=== PATIENT | male | born 1970 | race African-American/Black ===

== ENCOUNTER 2018-08-11 23:42 | Inpatient (IN) | payer BC ==
[2018-08-12 00:06] LABS: #Basophils 0.1 thou/uL (0.0-0.2); #Eosinphils 0.1 thou/uL (0.0-0.7); #Lymphocytes 3.8 thou/uL (1.20-3.40); #Monocytes 0.9 thou/uL (0.11-0.59); #Neutrophils 5.8 thou/uL (1.40-6.50); %Basophils 0.9 % (0.0-1.0); %Eosinophils 0.7 % (0.0-10.0); %Lymphocytes 35.6 % (21.0-51.0); %Monocytes 8.2 % (0.0-10.0); %Neutrophils 54.6 % (42.0-75.0); Hemoglobin 15.1 g/dL (14.0-18.0); Mean Corpuscular HGB CONC 33.7 g/dL (32.0-36.0); Mean Corpuscular Hemoglobin 29.3 pg (27.0-31.0); Mean Corpuscular Volume 86.8 fL (78.0-98.0); Mean Platelet Volume 6.6 fL (7.4-10.4); Platelet Count 329 thou/uL (130-400); Red Blood Cell (RBC) Count 5.15 mill/uL (4.70-6.10); White Blood Cell (WBC) Count 10.7 thou/uL (4.8-10.8)
[2018-08-12 00:32] LABS: ALT (SGPT) 23 U/L (8-55); AST (SGOT) 28 U/L (5-34); Albumin 3.9 g/dL (3.5-5.0); Alkaline Phosphatase 113 U/L (40-150); Anion Gap 15 mmol/L (10-20); BUN (Urea Nitrogen) 11 mg/dL (8.9-20.6); Bilirubin, Total 0.4 mg/dL (0.2-1.2); Calc. Creatinine Clearance 0 mL/min (70-130); Calcium 9.4 mg/dL (7.8-10.44); Carbon Dioxide 19 mmol/L (22-29); Chloride 102 mmol/L (98-107); Estimated GFR-MDRD Greater than 90; Globulin 3.4 g/dL (2.4-3.5); Glucose 168 mg/dL (70-105); Lipase 19 U/L (8-78); Potassium 4.6 mmol/L (3.5-5.1); Protein, Total 7.3 g/dL (6.0-8.3); Sodium 131 mmol/L (136-145)
[2018-08-12] MEDS ORDERED: Aspirin Chewable 81 MG TAB ONE (00:37)
[2018-08-12] MEDS ORDERED: Nitroglycerin 2% Ointment 1 INCH/1 GM Packet ONE (00:37)
[2018-08-12 00:46] LABS: CKMB 0.9 ng/mL (0-6.6)
[2018-08-12 00:55] LABS: Bilirubin Negative (Negative); Blood, Urine Negative (Negative); Clarity CLOUDY (Clear); Glucose, Urine (Dipstick) Negative (Negative); Leukocyte Negative (Negative); Nitrite Negative (Negative); Protein, Urine (Dipstick) Negative (Neg-Trace); Specific Gravity, Urine 1.004 (1.002-1.036); Urobilinogen 0.2 mg/dL (0.2-1.0)
[2018-08-12] MEDS ORDERED: Enoxaparin Sodium 100 MG/ML SYRINGE ONE (01:02)
[2018-08-12] MEDS ORDERED: Nitroglycerin 0.4 MG TAB (25 Tab Bottle) PO PRN (01:26)
[2018-08-12] MEDS ORDERED: Ondansetron ODT 4 MG TAB PO PRN (01:29)
[2018-08-12] MEDS ORDERED: Calcium Carbonate 500 MG ChewTAB PO PRN (01:29)
[2018-08-12] MEDS ORDERED: Dextrose 50% Abboject 50 ML SYRINGE SLOW IVP PRN (01:29)
[2018-08-12] MEDS ORDERED: Insulin Regular 300 UNITS/3 ML VIAL SC PRN ×2 (01:29)
[2018-08-12] MEDS ORDERED: Dextrose 5% in Water 1,000 ML IV PRN (01:29)
[2018-08-12] MEDS ORDERED: Ondansetron PF 4 MG/2 ML Vial IVP PRN (01:29)
[2018-08-12] MEDS ORDERED: Acetaminophen 325 MG TAB PO PRN (01:29)
--- NOTE | 2018-08-12 02:00 | HP ---
PRIMARY CARE: GRACE Johnson. CHIEF COMPLAINT: Chest discomfort. HISTORY OF PRESENT ILLNESS: The patient is a 48-year-old male with hypertension, diabetes mellitus type 2, and family history of heart disease, presented to the emergency room with chest discomfort. Over the last 3 weeks or so, the patient has intermittent chest discomfort associated with lightheadedness and dizziness. He normally has 2-3 episodes of chest discomfort on a daily basis. He denies any aggravating or relieving factor. Over the last 2-3 days, the chest pain is more frequent and lasting longer. Earlier today while he was at home, he had sudden onset of chest tightness with near syncope. He almost passed out per spouse at the bedside. He also had shortness of breath without any cough, fever, or chills. The chest pain was precordial 7-8/10 without any aggravating or relieving factor. He also had some palpitations. He denies recent immobilization or travel. He never had a sleep study. He is unable to recall his recent hemoglobin A1c. His last A1c in 2017 was 8.7. He received Lovenox, aspirin, and 1 inch nitroglycerin patch was placed. His pain is currently 2-3/10. PAST MEDICAL HISTORY: 1. Hypertension. 2. Diabetes mellitus type 2. 3. Hyperlipidemia. 4. Morbid obesity. PAST SURGICAL HISTORY: 1. Arthroscopic right knee surgery,. 2. Prostate biopsy. CURRENT HOME MEDICATIONS: The patient is unable to recall any of his home medications. Per family physician's office record, the patient takes lisinopril 5 mg daily and metformin 1000 mg twice a day. ALLERGIES: NO KNOWN DRUG ALLERGIES. SOCIAL HISTORY: The patient currently lives at home. Denies current use of smoking, alcohol, or drug use. He is a former smoker. He is . FAMILY HISTORY: Positive for premature coronary artery disease. Sister had a cardiac transplant. Mother with brain tumor. Diabetes runs in his family. REVIEW OF SYSTEMS: The patient denies any nausea, vomiting, diaphoresis, or focal deficits. All other review of systems were reviewed and were found negative. PHYSICAL EXAMINATION: VITAL SIGNS: Temperature 99.5, respirations 20, pulse rate of 95, blood pressure of 175/103 with O2 saturation of 100% on room air. GENERAL: A 48-year-old male, in no apparent distress. Chest discomfort improved. HEENT: Head is atraumatic, normocephalic. Sclerae anicteric. Moist mucous membranes. No oral lesion. NECK: Supple. No JVD appreciated. No carotid bruit. LUNGS: Clear to auscultation bilaterally. No wheezing, rales, or rhonchi. HEART: S1 and S2 present. Regular rate and rhythm. No rubs or gallops appreciated. ABDOMEN: Soft, nontender. Bowel sounds present. EXTREMITIES: No edema or calf tenderness. NEUROLOGY: Grossly nonfocal. Moves all 4 extremities. PSYCHIATRY: Alert, awake, oriented x3. SKIN: Warm and dry. LYMPH NODE: No palpable lymph nodes in the neck. PERIPHERAL VASCULAR: Radial pulses palpable bilaterally. MUSCULOSKELETAL: No joint swelling or tenderness. LABORATORY FINDINGS: EKG by my review showed T-wave inversions in the anterolateral leads. Chest x-ray by my review was negative for infiltrate. WBC 10.7 with hemoglobin 15.1, hematocrit 44.6, platelets 329. D-dimer was 0.52. Initial troponin was 0.051 with normal CK-MB. BUN was 11, creatinine 0.94. Urinalysis was negative for wbc or bacteria. IMPRESSION: 1. Unstable angina. 2. Hypertension. 3. Diabetes mellitus type 2. 4. Hyperlipidemia. 5. Morbid obesity. 6. Suspected sleep apnea. PLAN: The patient will be monitored in the telemetry unit. Cardiology will be consulted. He is currently undergoing CT angiogram of the chest to rule out PE due to elevated D-dimer. We will monitor serial troponins. He received one dose of 1 mg/kg of Lovenox. We will keep him n.p.o. We will check fasting lipid profile and hemoglobin A1c in a.m. Gentle IV hydration due to IV contrast. Plan of care was discussed with the patient in detail, he stated understanding. Job ID: [id number]
[2018-08-12 02:47] VITALS: BMI 39.2
[2018-08-12] MEDS: Sodium Chloride 0.9% 1,000 ML IV SCH ×2 (03:00→18:17)
[2018-08-12 03:44] LABS: Hemoglobin A1c 8.7 % (4.0-6.0)
[2018-08-12 03:54] LABS: Troponin I 0.122 ng/mL (< 0.028)
[2018-08-12] MEDS: Nitroglycerin 2% Ointment 1 INCH/1 GM Packet TOP SCH ×4 (06:32→23:34)
[2018-08-12 07:41] LABS: Cardiac Risk 4.3 (Less than 4.5)
--- NOTE | 2018-08-12 07:45 | RAD ---
EXAM: Single view of the chest HISTORY: chest pain COMPARISON: None FINDINGS: Single view of the chest shows a normal sized cardiomediastinal silhouette. There is no florence dence of consolidation, mass, or pleural effusion. The bones are unremarkable. IMPRESSION: No evidence of acute cardiopulmonary disease
[2018-08-12 08:02] LABS: CKMB 2.1 ng/mL (0-6.6)
--- NOTE | 2018-08-12 08:13 | CT ---
PRELIMINARY REPORT/[facility]/EMERGENCY AFTER HOURS PROCEDURE: EXAM: CT Angiography Chest With Contrast EXAM DATE/TIME: 08/12/2018 1:35 AM CLINICAL HISTORY: 48 years old, male; Signs and symptoms; Angina; Patient HX: 48 y/o m, with h/o dmii and HTN, presents to ed C/O x 3 weeks of intermittent cp. Per PT, initial onset of pain was associated with palpitatio ns. He was prompted to come to ed tonight when he became dizzy and felt as though he may have syncopa l episode with onset of the cp and palpitations. Palpitations described as a racing heart beat. Cp do es not appear to be prompted or exacerbated by anything, noting that the first episode began while he was sitting down. He is a current tobacco user. No dyspnea, diaphoresis, n/v, recent fever, chills, diarrhea, abd pain, uri. TECHNIQUE: Imaging protocol: Axial computed tomographic angiography images of the chest with intravenous contras t using CT angiography protocol. Coronal reformations created and reviewed. 3D rendering: MIP reconst ructed images were created and reviewed. COMPARISON: No relevant prior studies available. FINDINGS: Pulmonary arteries: No pulmonary emboli. Aorta: No aortic aneurysm. No aortic dissection. Lungs: No consolidations or edema. Pleural space: No pneumothorax or pleural effusion. Heart: The heart is within normal size limits. No abdnormal pericardial effusion. Adrenals: Mild thickening of the left adrenal gland without focal nodule. Lymph nodes: No lymphadenopathy. Bones/joints: Degenerative cystic changes of the bilateral shoulders. Soft tissues: No acute finding. IMPRESSION: No evidence of a pulmonary embolism. Thank you for allowing us to participate in the care of your patient. Dictated and Authenticated by: Kinza Franco MD 08/12/2018 2:37 AM Central Time ([place]) FINAL REPORT EMERGENT AFTER HOURS CT ANGIO CHEST WITH CONTRAST WITH 3D RECONSTRUCTION: HISTORY: Chest pain. Syncope. Palpitations. FINDINGS: The lungs are clear of any infiltrative process. There are no pulmonary nodules or pleural effusions identified. There is no significant mediastinal or hilar adenopathy. The thoracic aorta is normal in caliber. The pulmonary arteries are well opacified. There is no CT evidence for pulmonary embolus. The visualized liver parenchyma is normal. The left adrenal gland is nodular in appearance. In [place] terry 08/29/2010 CT abdomen and pelvis, it has a similar appearance. CT Hounsfield unit numbers wo uld suggest this represents an adenoma. IMPRESSION: 1. Probable left adrenal adenoma. 2. No CT evidence of pulmonary embolus. This report is in agreement with the temporary report issued by [facility]. POS: [facility]
[2018-08-12] MEDS: Lisinopril 5 MG TAB PO SCH (08:37)
[2018-08-12] MEDS: Senokot S 8.6-50 MG TAB PO SCH ×2 (08:38→20:44)
[2018-08-12] MEDS: Famotidine 20 MG TAB PO SCH ×2 (08:38→20:45)
[2018-08-12] MEDS: Carvedilol 3.125 MG TAB PO SCH ×2 (08:38→18:16)
[2018-08-12] MEDS ORDERED: Aspirin 325 mg Enteric Coated Tablet PO SCH (09:00)
[2018-08-12] MEDS ORDERED: ISOVUE-370 76%-LOCM 1 ML ONE (09:35)
[2018-08-12] MEDS ORDERED: Communication Order-Pharmacy FS SCH (10:45)
[2018-08-12] MEDS ORDERED: Diazepam 5 MG TAB PO SCH (10:45)
--- NOTE | 2018-08-12 11:06 | CON ---
DATE OF CONSULTATION: 08/12/2018 REASON FOR CONSULTATION: Non ST-elevation myocardial infarction, diabetes, hypertension, and smoking. HISTORY OF PRESENT ILLNESS: Mr. Kovacs is a very pleasant 48-year-old gentleman, who states that for the last 3 days, he has had severe substernal chest pain. The last night, it was intense and was much more prolonged. The patient came to the emergency room, was found to have some increase in troponin levels, was given Lovenox and aspirin, admitted for further evaluation. The patient states he has had high blood pressure for at least 10 years. He said he smokes "one pack lasts be about two days." He said he has been diagnosed with diabetes about a year ago, he tells me. PAST MEDICAL HISTORY: 1. Diabetes as outlined above. 2. Hypertension at least 10 years. SOCIAL HISTORY: Positive for smoking as outlined above. FAMILY HISTORY: His sister has had cardiac transplantation. REVIEW OF SYSTEMS: CONSTITUTIONAL: No significant weight gain or loss. VISION: No changes. HEARING: No changes. PULMONARY: No cough or wheezing. GASTROINTESTINAL: No nausea, vomiting, or diarrhea. SKIN: No rashes. NEUROLOGIC: No unilateral weakness or numbness. PSYCHIATRIC: No unusual depression or anxiety. PHYSICAL EXAMINATION: GENERAL: This is a 48-year-old gentleman, 5 feet 8 inches tall, 258 pounds, BMI is 39.2, compatible with morbid obesity. HEENT: Eyes, sclerae nonicteric. Mouth, mucous membranes are moist. VITAL SIGNS: Pulse 74, blood pressure 107/58. NECK: Veins are normal. Carotid, normal upstrokes. LUNGS: Clear anteriorly and laterally. CARDIAC: Normal S1, normal S2. I do not hear murmur, rub, or gallop. ABDOMEN: Obese, nontender. EXTREMITIES: No clubbing or cyanosis. No edema. SKIN: Warm and dry. PSYCHIATRIC: Mood and affect normal. NEUROLOGIC: Grossly normal. VASCULAR: Good dorsalis pedis and posterior tibial pulses. PERTINENT LABORATORY DATA: The peak troponin was 0.172. LDL cholesterol is 98. Sodium 131, glucose 168. EKG normal sinus rhythm. T-wave inversion in lead I and aVL. Nonspecific changes in V2. Also intermittently, he has had some nonspecific T-wave changes in V4. ASSESSMENT: 1. Non ST-elevation infarction. 2. Diabetes. 3. Hypertension. 4. Morbid obesity. 5. Tobacco dependence. PLAN: 1. He has received aspirin. 2. Received Lovenox at 1 o'clock this morning. 3. Will need statin therapy. 4. Recommend he proceed cardiac catheterization. Discussed risk of stroke, heart attack, iodine allergy, loss of blood supply to leg or kidney, stent thrombosis, stent restenosis. He understands and wishes to proceed. Job ID: [id number]
[2018-08-12] MEDS ORDERED: Fentanyl 100 MCG/2 ML VIAL ONE (11:40)
[2018-08-12] MEDS ORDERED: Midazolam HCl 2 mg/2 ml Vial ONE (11:40)
--- NOTE | 2018-08-12 12:06 | PDOC.PN ---
- Subjective Encounter Start Date: 08/12/18 Encounter Start Time: 08:00 -: old records requested/rev Patient seen and examined. No new complaints. No overnight events - Objective Resuscitation Status - Order Detail: 08/12/18 01:29 Resuscitation Status Routine Resuscitation Status: FULL: Full Resuscitation MAR Reviewed: Yes Vital Signs & Weight: Vital Signs (12 hours) Temp Pulse Resp BP Pulse Ox 08/12/18 08:37 74 08/12/18 08:00 98.2 F 74 16 107/58 L 96 08/12/18 04:00 97.9 F 83 18 109/53 L 96 08/12/18 03:29 97 08/12/18 02:51 98 08/12/18 02:00 98.4 F 80 18 151/72 H 97 Weight Weight 258 lb Result Diagrams: 08/11/18 23:53 08/11/18 23:53 Additional Labs: Accuchecks 08/12/18 08/12/18 08/11/18 11:01 06:22 23:52 POC Glucose 118 H 181 H 166 H EKG Reviewed by me: Yes Phys Exam - Physical Examination Constitutional: NAD HEENT: PERRLA, moist MMs, sclera anicteric Neck: no JVD, supple Respiratory: no wheezing, no rales, no rhonchi Cardiovascular: RRR, no significant murmur, no rub Gastrointestinal: soft, non-tender, no distention, positive bowel sounds Musculoskeletal: no edema, pulses present Neurological: non-focal, normal sensation, moves all 4 limbs Lymphatic: no nodes Psychiatric: normal affect, A&O x 3 Skin: no rash, normal turgor Dx/Plan (1) Unstable angina Status: Acute (2) Diabetes type 2, controlled Code(s): E11.9 - TYPE 2 DIABETES MELLITUS WITHOUT COMPLICATIONS Status: Chronic (3) Dyslipidemia Code(s): E78.5 - HYPERLIPIDEMIA, UNSPECIFIED Status: Chronic (4) Hypertension Code(s): I10 - ESSENTIAL (PRIMARY) HYPERTENSION Status: Chronic (5) Obesity (BMI 30-39.9) Code(s): E66.9 - OBESITY, UNSPECIFIED Status: Chronic - Plan cont current plan of care, plan discussed w/ family * medication reviewed as below * symptomatic treatment * cardiology consulted * continue medical therapy. Review of Systems - Review of Systems ENT: negative: Ear Pain, Ear Discharge, Nose Pain, Nose Discharge, Nose Congestion, Mouth Pain, Mouth Swelling, Throat Pain, Throat Swelling, Other Respiratory: negative: Cough, Dry, Shortness of Breath, Hemoptysis, SOB with Excertion, Pleuritic Pain, Sputum, Wheezing Cardiovascular: negative: chest pain, palpitations, orthopnea, paroxysmal nocturnal dyspnea, edema, light headedness, other Gastrointestinal: negative: Nausea, Vomiting, Abdominal Pain, Diarrhea, Constipation, Melena, Hematochezia, Other Genitourinary: negative: Dysuria, Frequency, Incontinence, Hematuria, Retention , Other Musculoskeletal: negative: Neck Pain, Shoulder Pain, Arm Pain, Back Pain, Hand Pain, Leg Pain, Foot Pain, Other - Medications/Allergies Allergies/Adverse Reactions: Allergies Allergy/AdvReac Type Severity Reaction Status Date / Time No Known Drug Allergies Allergy Verified 08/12/18 06:25 Medications: Current Medications Acetaminophen (Tylenol) 650 mg PO Q4H PRN PRN Reason: Headache/Fever/Mild Pain (1-3) Aspirin (Ecotrin) 325 mg PO DAILY [facility] Last Admin: 08/12/18 08:38 Dose: 325 mg Calcium Carbonate (Tums) 1,000 mg PO Q4H PRN PRN Reason: Heartburn or Indigestion Carvedilol (Coreg) 3.125 mg PO BID-[facility] Last Admin: 08/12/18 08:38 Dose: 3.125 mg Dextrose/Water (Dextrose 50%) 25 gm SLOW IVP PRN PRN PRN Reason: Hypoglycemia Diazepam (Valium) 5 mg PO WILLCALL [facility] Stop: 08/12/18 20:00 Famotidine (Pepcid) 20 mg PO BID [facility] Last Admin: 08/12/18 08:38 Dose: 20 mg Glucagon (Glucagon) 1 mg IM PRN PRN PRN Reason: Hypoglycemia Dextrose/Water (D5w) 1,000 mls @ 0 mls/hr IV .Q0M PRN PRN Reason: Hypoglycemia Sodium Chloride (Normal Saline 0.9%) 1,000 mls @ 70 mls/hr IV .[id number] [facility] Last Admin: 08/12/18 03:00 Dose: 1,000 mls Insulin Human Regular (Humulin R) 0 units SC .MILD SLIDING SCALE PRN PRN Reason: Mild Correctional Scale Insulin Human Regular (Humulin R) 0 units SC .BEDTIME SLIDING SC PRN PRN Reason: Bedtime Correctional Scale Lisinopril (Zestril) 5 mg PO DAILY [facility] Last Admin: 08/12/18 08:37 Dose: 5 mg Miscellaneous Information (Communication Order-Pharmacy) 0 each FS ONE [facility] Stop: 08/12/18 20:00 Nitroglycerin (Nitro-Bid 2% Ointment) 1 inch TOP Q6HR [facility] Last Admin: 08/12/18 06:32 Dose: 1 inch Nitroglycerin (Nitrostat) 0.4 mg PO Q5MIN PRN PRN Reason: Chest Pain Ondansetron HCl (Zofran Odt) 4 mg PO Q6H PRN PRN Reason: Nausea/Vomiting Ondansetron HCl (Zofran) 4 mg IVP Q6H PRN PRN Reason: Nausea/Vomiting Senna/Docusate Sodium (Senokot S) 1 tab PO BID [facility] Last Admin: 08/12/18 08:38 Dose: Not Given Sodium Chloride (Flush - Normal Saline) 10 ml IVF PRN PRN PRN Reason: Saline Flush
[2018-08-12] MEDS ORDERED: Heparin 10,000 UNITS/1 ML VIAL ONE ×2 (12:47→12:59)
[2018-08-12] MEDS ORDERED: Nitroglycerin 100MG/250ML BOT 250 ML ONE (12:51)
[2018-08-12] MEDS ORDERED: TICAGRELOR 90 MG TABLET ONE (13:54)
[2018-08-12] MEDS ORDERED: Iopamidol 370 76% 50 ML VIAL FS ONE (14:20)
[2018-08-12] MEDS ORDERED: Iopamidol 370 76% 100 ML VIAL ONE (14:20)
[2018-08-12] MEDS ORDERED: Acetaminophen/Codeine 30-300mg Tablet PO PRN (14:27)
[2018-08-12] MEDS ORDERED: Mag-Al 1200 mg/1200 mg/30 ML UDCUP PO PRN (14:27)
[2018-08-12] MEDS ORDERED: traMADol HCl 50 MG TAB PO PRN (14:27)
[2018-08-12] MEDS ORDERED: Morphine 2 MG/ML SYRINGE SLOW IVP PRN (14:27)
[2018-08-12] MEDS ORDERED: TICAGRELOR 90 MG TABLET PO SCH (14:30)
[2018-08-12] MEDS: TICAGRELOR 90 MG TABLET PO SCH (20:45)
[2018-08-12] MEDS ORDERED: Atorvastatin Calcium 40 MG TAB PO SCH (21:00)
[2018-08-13 05:22] LABS: #Basophils 0.1 thou/uL (0.0-0.2); #Eosinphils 0.2 thou/uL (0.0-0.7); #Lymphocytes 3.3 thou/uL (1.20-3.40); #Neutrophils 5.4 thou/uL (1.40-6.50); %Basophils 0.8 % (0.0-1.0); %Eosinophils 1.9 % (0.0-10.0); %Lymphocytes 32.8 % (21.0-51.0); %Monocytes 9.8 % (0.0-10.0); %Neutrophils 54.6 % (42.0-75.0); Hemoglobin 13.5 g/dL (14.0-18.0); Mean Corpuscular HGB CONC 33.6 g/dL (32.0-36.0); Mean Corpuscular Hemoglobin 29.5 pg (27.0-31.0); Mean Corpuscular Volume 87.7 fL (78.0-98.0); Mean Platelet Volume 6.8 fL (7.4-10.4); Platelet Count 304 thou/uL (130-400); Red Blood Cell (RBC) Count 4.57 mill/uL (4.70-6.10)
[2018-08-13] MEDS: Nitroglycerin 2% Ointment 1 INCH/1 GM Packet TOP SCH (05:27)
[2018-08-13] MEDS: Sodium Chloride 0.9% 1,000 ML IV SCH (05:27)
[2018-08-13 05:40] LABS: ALT (SGPT) 15 U/L (8-55); AST (SGOT) 12 U/L (5-34); Albumin 3.2 g/dL (3.5-5.0); Alkaline Phosphatase 99 U/L (40-150); Anion Gap 11 mmol/L (10-20); BUN (Urea Nitrogen) 11 mg/dL (8.9-20.6); Bilirubin, Total 0.3 mg/dL (0.2-1.2); Calc. Creatinine Clearance 146 mL/min (70-130); Calcium 8.5 mg/dL (7.8-10.44); Carbon Dioxide 23 mmol/L (22-29); Chloride 104 mmol/L (98-107); Estimated GFR-MDRD Greater than 90; Globulin 2.6 g/dL (2.4-3.5); Glucose 193 mg/dL (70-105); Magnesium 1.8 mg/dL (1.6-2.6); Protein, Total 5.8 g/dL (6.0-8.3); Sodium 134 mmol/L (136-145)
[2018-08-13] MEDS ORDERED: Aspirin Chewable 81 MG TAB PO SCH (09:00)
[2018-08-13] MEDS: Lisinopril 5 MG TAB PO SCH (09:48)
[2018-08-13] MEDS: Famotidine 20 MG TAB PO SCH (09:50)
[2018-08-13] MEDS: TICAGRELOR 90 MG TABLET PO SCH (09:51)
[2018-08-13] MEDS: Carvedilol 3.125 MG TAB PO SCH (09:51)
[2018-08-13 09:52] VITALS: BP 122/65
[2018-08-13] MEDS: Senokot S 8.6-50 MG TAB PO SCH (09:52)
--- NOTE | 2018-08-13 10:11 | PDOC.PN ---
- Subjective Encounter Start Date: 08/13/18 Encounter Start Time: 07:20 -: old records requested/rev Patient seen and examined. No new complaints. No overnight events - Objective Resuscitation Status - Order Detail: 08/12/18 01:29 Resuscitation Status Routine Resuscitation Status: FULL: Full Resuscitation MAR Reviewed: Yes Vital Signs & Weight: Vital Signs (12 hours) Temp Pulse Resp BP BP Pulse Ox 08/13/18 09:48 84 122/65 08/13/18 04:00 98.2 F 92 18 105/54 L 96 Weight Weight 260 lb 4.8 oz I&O: 08/12/18 08/13/18 08/14/18 06:59 06:59 06:59 Intake Total 300 Output Total 275 Balance 25 Result Diagrams: 08/13/18 04:41 08/13/18 04:41 Additional Labs: Accuchecks 08/13/18 08/13/18 08/12/18 06:08 00:10 11:01 POC Glucose 141 H 230 H 118 H EKG Reviewed by me: Yes Phys Exam - Physical Examination Constitutional: NAD HEENT: PERRLA, moist MMs, sclera anicteric Neck: no JVD, supple Respiratory: no wheezing, no rales, no rhonchi Cardiovascular: RRR, no significant murmur, no rub Gastrointestinal: soft, non-tender, no distention, positive bowel sounds Musculoskeletal: no edema, pulses present Neurological: non-focal, normal sensation, moves all 4 limbs Psychiatric: normal affect, A&O x 3 Skin: no rash, normal turgor Dx/Plan (1) Unstable angina Status: Acute (2) Diabetes type 2, controlled Code(s): E11.9 - TYPE 2 DIABETES MELLITUS WITHOUT COMPLICATIONS Status: Chronic (3) Dyslipidemia Code(s): E78.5 - HYPERLIPIDEMIA, UNSPECIFIED Status: Chronic (4) Hypertension Code(s): I10 - ESSENTIAL (PRIMARY) HYPERTENSION Status: Chronic (5) Obesity (BMI 30-39.9) Code(s): E66.9 - OBESITY, UNSPECIFIED Status: Chronic - Plan cont current plan of care * medication reviewed as below * symptomatic treatment * see discharge summery. Review of Systems - Review of Systems ENT: negative: Ear Pain, Ear Discharge, Nose Pain, Nose Discharge, Nose Congestion, Mouth Pain, Mouth Swelling, Throat Pain, Throat Swelling, Other Respiratory: negative: Cough, Dry, Shortness of Breath, Hemoptysis, SOB with Excertion, Pleuritic Pain, Sputum, Wheezing Cardiovascular: negative: chest pain, palpitations, orthopnea, paroxysmal nocturnal dyspnea, edema, light headedness, other Gastrointestinal: negative: Nausea, Vomiting, Abdominal Pain, Diarrhea, Constipation, Melena, Hematochezia, Other Genitourinary: negative: Dysuria, Frequency, Incontinence, Hematuria, Retention , Other Musculoskeletal: negative: Neck Pain, Shoulder Pain, Arm Pain, Back Pain, Hand Pain, Leg Pain, Foot Pain, Other - Medications/Allergies Allergies/Adverse Reactions: Allergies Allergy/AdvReac Type Severity Reaction Status Date / Time No Known Drug Allergies Allergy Verified 08/12/18 06:25 Medications: Current Medications Acetaminophen (Tylenol) 650 mg PO Q4H PRN PRN Reason: Headache/Fever/Mild Pain (1-3) Al Hydroxide/Mg Hydroxide (Maalox) 30 ml PO Q3H PRN PRN Reason: Indigestion Aspirin (Aspirin Chewable) 81 mg PO DAILY [facility] Last Admin: 08/13/18 09:51 Dose: 81 mg Atorvastatin Calcium (Lipitor) 40 mg PO HS [facility] Last Admin: 08/12/18 20:45 Dose: 40 mg Calcium Carbonate (Tums) 1,000 mg PO Q4H PRN PRN Reason: Heartburn or Indigestion Carvedilol (Coreg) 3.125 mg PO BID-[facility] Last Admin: 08/13/18 09:51 Dose: 3.125 mg Dextrose/Water (Dextrose 50%) 25 gm SLOW IVP PRN PRN PRN Reason: Hypoglycemia Famotidine (Pepcid) 20 mg PO BID [facility] Last Admin: 08/13/18 09:50 Dose: 20 mg Glucagon (Glucagon) 1 mg IM PRN PRN PRN Reason: Hypoglycemia Dextrose/Water (D5w) 1,000 mls @ 0 mls/hr IV .Q0M PRN PRN Reason: Hypoglycemia Insulin Human Regular (Humulin R) 0 units SC .MILD SLIDING SCALE PRN PRN Reason: Mild Correctional Scale Insulin Human Regular (Humulin R) 0 units SC .BEDTIME SLIDING SC PRN PRN Reason: Bedtime Correctional Scale Lisinopril (Zestril) 5 mg PO DAILY [facility] Last Admin: 08/13/18 09:48 Dose: 5 mg Nitroglycerin (Nitrostat) 0.4 mg PO Q5MIN PRN PRN Reason: Chest Pain Ondansetron HCl (Zofran Odt) 4 mg PO Q6H PRN PRN Reason: Nausea/Vomiting Ondansetron HCl (Zofran) 4 mg IVP Q6H PRN PRN Reason: Nausea/Vomiting Senna/Docusate Sodium (Senokot S) 1 tab PO BID [facility] Last Admin: 08/13/18 09:52 Dose: Not Given Sodium Chloride (Flush - Normal Saline) 10 ml IVF PRN PRN PRN Reason: Saline Flush Ticagrelor (Brilinta) 90 mg PO BID [facility] Last Admin: 08/13/18 09:51 Dose: 90 mg Tramadol HCl (Ultram) 50 mg PO Q6H PRN PRN Reason: Moderate Pain (4-6)
--- NOTE | 2018-08-13 11:17 | DIS ---
DATE OF ADMISSION: 08/12/2018 DATE OF DISCHARGE: 08/13/2018 PRIMARY CARE PHYSICIAN: GRACE Johnson. DISCHARGE DISPOSITION: Home. PRIMARY DISCHARGE DIAGNOSIS: Unstable angina, status post stent in LAD. SECONDARY DISCHARGE DIAGNOSES: Obesity with BMI 39, hypertension, dyslipidemia, diabetes type 2. PRIMARY PROCEDURE/OPERATION: Cardiac catheterization was performed by Dr. Zamarripa and stent was placed. RADIOLOGICAL INVESTIGATION: Chest x-ray normal. CT angio negative for PE. Echocardiography showed normal EF. SIGNIFICANT LABORATORY DATA: WBC 10.0, hemoglobin 13.5, platelets 304. Sodium 134, creatinine 1.01. LFT normal. LDL 98. Troponin 0.172. Urinalysis normal. DISCHARGE MEDICATIONS: 1. Metformin 500 mg p.o. b.i.d. 2. Aspirin 81 mg daily. 3. Lipitor 40 mg p.o. at bedtime. 4. Coreg 3.125 mg p.o. b.i.d. 5. Lisinopril 5 mg p.o. daily. 6. Brilinta 90 mg p.o. b.i.d. CONTRAINDICATION: None. CODE STATUS: Full code. INPATIENT PROCESS DESIGNER: Dr. Zamarripa. TEST RESULTS PENDING ON DISCHARGE: None. ALLERGIES: NO KNOWN DRUG ALLERGIES. DISCHARGE PLAN: Posthospital, the patient will follow up with Dr. Zamarripa and primary care physician as instructed. HOSPITAL COURSE: A 48-year-old male with above-mentioned medical problem, who was admitted by Dr. James Ortega. Please see his H and P for further details. The patient was admitted for classic angina and he was having crescendo angina. He was clinically diagnosed with unstable angina. He had elevated troponin. His EKG was unremarkable. Cardiology was consulted and Cardiology did cardiac cath and found with significant LAD lesion and stent was placed. After that, we started the dual antiplatelet therapy. The patient was given instruction to continue dual antiplatelet therapy as advised for at least minimum 6 months to 1 year. The patient is currently completely asymptomatic and he wants to go home. Cardiology cleared him for discharge as well. His echocardiography is normal other than hypokinesis of the apex. The patient is seen and examined at bedside today. Please see my progress note from today for further details. All new medication prescription sent to his pharmacy. Job ID: [id number]
[2018-08-13 11:23] VITALS: TEMP 98.6
== END 2018-08-13 11:45 | disposition home or self-care (01) | DRG 247 ==
LOC: ERS 23:42 → 2NO 08-12 01:04
PROVIDERS: ADMIT Internal Medicine; ATTEND Internal Medicine
PROC: 027034Z Dilation of Coronary Artery, One Artery with Drug-eluting Intraluminal Device, Percutaneous Approach (ICD-10-PCS; principal; 2018-08-12)
PROC: B2111ZZ Fluoroscopy of Multiple Coronary Arteries using Low Osmolar Contrast (ICD-10-PCS; 2018-08-12)
DX: I20.0 Unstable angina (principal); I10 Essential (primary) hypertension; E11.9 Type 2 diabetes mellitus without complications; E66.01 Morbid (severe) obesity due to excess calories; G47.30 Sleep apnea, unspecified; E78.5 Hyperlipidemia, unspecified; R79.89 Other specified abnormal findings of blood chemistry; Z79.84 Long term (current) use of oral hypoglycemic drugs; Z68.39 Body mass index [BMI] 39.0-39.9, adult; Z79.82 Long term (current) use of aspirin
CPT/HCPCS: 36415; 36416; 71045; 71275; 76942; 80053; 80061; 81003; 82553; 83036; 83690; 83735; 84484; 85025; 85347; 85379; 92928; 93005; 93010; 93306; 93798; 94760; 96372; 99152; 99153; 99406; C1769; C1874; C1887; C9600; J1644; J1650; J2250; J3010; Q9967

== ENCOUNTER 2018-10-22 23:03 | Observation (INO) | payer BC ==
[2018-10-22] MEDS ORDERED: Acetaminophen 325 MG/10.15 ML UDCUP ONE (23:38)
[2018-10-22] MEDS ORDERED: Acetaminophen 500 MG TAB ONE (23:38)
[2018-10-22] MEDS ORDERED: Piperacillin/Tazobactam 4.5 GM in Sodium Chloride 0.9% 100 ML IVPB SCH (23:45)
--- NOTE | 2018-10-22 23:57 | RAD ---
Chest one view HISTORY: Fever. FINDINGS: Cardiac silhouette is magnified by projection. Pulmonary vasculature upper limits of normal . Mediastinum is midline. No lobar consolidation or evidence of pneumothorax. Degenerative changes of the shoulders. salvage worker leads overlie the chest. IMPRESSION: Borderline pulmonary vascular congestion.
[2018-10-23 00:02] LABS: #Eosinphils 0.1 thou/uL (0.0-0.7); #Lymphocytes 2.1 thou/uL (1.20-3.40); #Monocytes 1.1 thou/uL (0.11-0.59); %Basophils 0.2 % (0.0-1.0); %Lymphocytes 18.7 % (21.0-51.0); %Neutrophils 70.2 % (42.0-75.0); Hemoglobin 13.8 g/dL (14.0-18.0); Mean Corpuscular HGB CONC 33.7 g/dL (32.0-36.0); Mean Corpuscular Hemoglobin 29.5 pg (27.0-31.0); Mean Corpuscular Volume 87.4 fL (78.0-98.0); Mean Platelet Volume 6.4 fL (7.4-10.4); Platelet Count 316 thou/uL (130-400); RBC Distribution Width 13.5 % (11.5-14.5); Red Blood Cell (RBC) Count 4.69 mill/uL (4.70-6.10); White Blood Cell (WBC) Count 11.3 thou/uL (4.8-10.8)
[2018-10-23 00:15] LABS: ALT (SGPT) 20 U/L (8-55); AST (SGOT) 17 U/L (5-34); Albumin 3.8 g/dL (3.5-5.0); Alkaline Phosphatase 111 U/L (40-150); Anion Gap 13 mmol/L (10-20); BUN (Urea Nitrogen) 13 mg/dL (8.9-20.6); Bilirubin, Total 0.5 mg/dL (0.2-1.2); Calc. Creatinine Clearance 0 mL/min (70-130); Calcium 9.4 mg/dL (7.8-10.44); Carbon Dioxide 22 mmol/L (22-29); Chloride 104 mmol/L (98-107); Estimated GFR-MDRD Greater than 90; Glucose 142 mg/dL (70-105); Potassium 4.1 mmol/L (3.5-5.1); Protein, Total 6.8 g/dL (6.0-8.3); Sodium 135 mmol/L (136-145)
[2018-10-23 00:28] LABS: Bilirubin Negative (Negative); Blood, Urine Large (Negative); Clarity Cloudy (Clear); Glucose, Urine (Dipstick) Negative (Negative); Leukocyte Trace (Negative); Nitrite Negative (Negative); Protein, Urine (Dipstick) 30 mg/dL (Neg-Trace)
[2018-10-23 00:38] LABS: RBC/HPF GREATER THAN 50-TNTC HPF (0-3); Renal Epithelial None Seen HPF (0-3); Transitional Epithelial NONE SEEN HPF (0-3)
[2018-10-23 00:39] LABS: Bacteria/HPF None Seen HPF (None Seen); Crystals/HPF None Seen HPF (Negative); Hyaline Casts/LPF NONE SEEN LPF (0-3 Hyaline); Yeast-All Forms None Seen HPF (None Seen)
[2018-10-23] MEDS ORDERED: traMADol HCl 50 MG TAB PO PRN (04:16)
[2018-10-23] MEDS ORDERED: Acetaminophen 325 MG TAB ONE (04:20)
[2018-10-23] MEDS ORDERED: traMADol HCl 50 MG TAB ONE (04:20)
[2018-10-23] MEDS ORDERED: Ondansetron ODT 4 MG TAB PO PRN (04:22)
[2018-10-23] MEDS ORDERED: Ondansetron PF 4 MG/2 ML Vial IVP PRN (04:22)
[2018-10-23] MEDS ORDERED: Ondansetron PF 4 MG/2 ML Vial ONE (04:23)
[2018-10-23 04:45] LABS: Anion Gap 15 mmol/L (10-20); BUN (Urea Nitrogen) 13 mg/dL (8.9-20.6); Calc. Creatinine Clearance 0 mL/min (70-130); Calcium 8.9 mg/dL (7.8-10.44); Carbon Dioxide 19 mmol/L (22-29); Chloride 105 mmol/L (98-107); Estimated GFR-MDRD 87; Glucose 149 mg/dL (70-105); Potassium 4.6 mmol/L (3.5-5.1); Sodium 134 mmol/L (136-145)
[2018-10-23 05:19] LABS: Band 3 % (5-11); Hemoglobin 14.9 g/dL (14.0-18.0); Lymphocytes 55 % (21-51); MDiff Complete? YES; Mean Corpuscular HGB CONC 33.2 g/dL (32.0-36.0); Mean Corpuscular Hemoglobin 29.5 pg (27.0-31.0); Mean Corpuscular Volume 88.8 fL (78.0-98.0); Mean Platelet Volume 6.4 fL (7.4-10.4); Monocytes 4 % (0-10); Neutrophil 38 % (42-75); Platelet Count 281 thou/uL (130-400); RBC Distribution Width 13.6 % (11.5-14.5); Red Blood Cell (RBC) Count 5.05 mill/uL (4.70-6.10); White Blood Cell (WBC) Count 4.8 thou/uL (4.8-10.8)
[2018-10-23] MEDS: Piperacillin/Tazobactam 3.375 GM in Sodium Chloride 0.9% 100 ML IVPB SCH ×4 (06:00→23:51)
[2018-10-23] MEDS ORDERED: Aspirin 81 mg Enteric Coated Tablet ONE (10:41)
[2018-10-23] MEDS: TICAGRELOR 90 MG TABLET PO SCH ×2 (10:45→20:31)
[2018-10-23] MEDS: Lisinopril 5 MG TAB PO SCH (10:46)
[2018-10-23] MEDS ORDERED: Aspirin Chewable 81 MG TAB ONE (10:50)
[2018-10-23] MEDS: Aspirin Chewable 81 MG TAB PO SCH (10:51)
[2018-10-23] MEDS ORDERED: Piperacillin/Tazobactam 3.375 GM VIAL ONE (12:25)
--- NOTE | 2018-10-23 12:55 | HP ---
PRIMARY CARE PHYSICIAN: Genia Carrion, LIANA-C CHIEF COMPLAINT: Fever and chills. HISTORY OF PRESENT ILLNESS: Mr. Kovacs is a pleasant 48-year-old man with past medical history of hypertension, hyperlipidemia, diabetes mellitus type 2, and coronary artery disease, status post stent, who had presented to [facility] over the last night due to fever and chills, he has status post prostate biopsy that had taken place on Sunday. Now, the patient states that he had noticed fever, chills, nausea, and vomiting developed early yesterday morning. He states that he had not taken his pre and post-biopsy prophylactic antibiotics as he was not aware that he had these medications at the pharmacy and states that he has not remembered anyone mentioning this in his prior visits. The patient received a dose of vancomycin and Zosyn in the emergency department. Currently, the patient states that he is feeling better. He had denied any fever, chills, any headache, blurred vision, chest pain, palpitation, shortness of breath, abdominal pain, nausea, or vomiting at the moment. The patient reports some blood-tinged urine, but no difficulty urinating. His urinalysis showed large blood, greater than 50 rbc, trace leukocyte esterase, 11 to 20 wbc's. His chest x-ray revealed borderline pulmonary vascular congestion. However, the patient denies any cough or shortness of breath. His initial lab work showed an elevated white count of 11.3, however, his repeat CBC showed improvement to 4.8. Blood and urine cultures are pending at this time. REVIEW OF SYSTEMS: All other systems reviewed and found to be negative unless mentioned in the HPI. PAST MEDICAL HISTORY: Hypertension, hyperlipidemia, diabetes mellitus type 2, and coronary artery disease. PAST SURGICAL HISTORY: Prostate biopsy, heart catheterization with stent placement, and right knee arthroscopic surgery. PSYCHIATRIC HISTORY: None. SOCIAL HISTORY: The patient denies alcohol, tobacco, or illicit drug use. He lives at home with his family. KNOWN ALLERGIES: No known drug allergies. CURRENT HOME MEDICATIONS: 1. Aspirin 81 mg daily. 2. Carvedilol 3.125 mg p.o. b.i.d. 3. Lisinopril 5 mg p.o. daily. 4. Brilinta 90 mg p.o. b.i.d. 5. Atorvastatin 40 mg p.o. at bedtime. PHYSICAL EXAMINATION: VITAL SIGNS: Blood pressure 145/71, pulse 82, respirations 17, temperature 100.4, and O2 saturation 98% on room air. GENERAL: The patient is awake, alert, and oriented x3. He is currently lying comfortably in bed and in no acute distress at this time. His family is at bedside. HEENT: Atraumatic, normocephalic. Pupils are round and reactive to light. Extraocular muscles are intact. Moist mucous membranes noted. NECK: Soft and supple. Trachea midline. CARDIOVASCULAR: Positive S1 and S2. Regular rate and rhythm. No murmur auscultated. RESPIRATORY: Clear to auscultation bilaterally. No wheezes, rales, or rhonchi. ABDOMEN: Soft and nontender. Bowel sounds present. MUSCULOSKELETAL: Strength 5+ bilaterally in upper and lower extremities. Moves all extremities equal. Pedal and radial pulses 2+ bilaterally. No edema noted. NEUROLOGIC: Cranial nerves II through XII grossly intact. No focal deficits noted. Speech intact and normal. Gait not assessed. SKIN: Warm, dry, and intact. No rashes. No ulceration noted. PSYCHIATRIC: Good mood and affect. LABORATORY DATA: WBC 4.8, RBC 5.05, hemoglobin 14.9, and platelets 281. Sodium 134, potassium 4.6, anion gap 15, BUN 13, creatinine 1.09, estimated GFR 87, and glucose 149. Lactic acid 1.8. AST 17, ALT 20. Urinalysis showed large blood, trace leukocyte esterase, greater than 50 rbc, 11 to 20 wbc, squamous epithelial cells 4 to 6, and 30 protein. DIAGNOSTIC IMAGING: Portable chest x-ray showed borderline pulmonary vascular congestion. ASSESSMENT AND PLAN: 1. Prostatitis. The patient will be started on vancomycin and Zosyn. At this time, currently urine culture and blood cultures are pending. Once these results are final, the patient will likely be transitioned to an oral antibiotic prior to discharge. 2. Hypertension. Continue the patient's home regimen. 3. Hyperlipidemia. Continue home statin. 4. Diabetes mellitus. The patient will be started on insulin sliding scale at this time with frequent Accu-Cheks. 5. History of coronary artery disease. Continue home regimen as above. 6. Deep venous thrombosis and gastrointestinal prophylaxis. 7. Code status, full code. DISPOSITION: The patient will be started on antibiotics at this time and await further urine and blood culture results. The patient will likely be transitioned to oral antibiotic prior to discharge and he will likely be discharged home in the next 1 to 2 days. Job ID: [id number] ADELINA
[2018-10-23] MEDS: Acetaminophen 325 MG TAB PO PRN ×2 (14:22→18:02)
[2018-10-23] MEDS: Vancomycin HCl 1.5 GM in Sodium Chloride 0.9% 250 ML 300 ML IVPB SCH (14:22)
[2018-10-23 14:31] VITALS: BMI 39.2
[2018-10-23] MEDS: Carvedilol 3.125 MG TAB PO SCH (18:00)
[2018-10-23] MEDS: Atorvastatin Calcium 40 MG TAB PO SCH (20:31)
[2018-10-23] MEDS: Ibuprofen 200 MG TAB PO PRN (21:07)
[2018-10-24] MEDS: Vancomycin HCl 1.5 GM in Sodium Chloride 0.9% 250 ML 300 ML IVPB SCH ×2 (00:49→14:21)
[2018-10-24] MEDS ORDERED: Acetaminophen 1,000 MG in Premix Bag 1 BAG IVPB PRN (03:14)
[2018-10-24] MEDS: Acetaminophen 500 MG TAB PO PRN ×2 (03:22→12:46)
[2018-10-24 05:39] LABS: Anion Gap 14 mmol/L (10-20); BUN (Urea Nitrogen) 9 mg/dL (8.9-20.6); Calc. Creatinine Clearance 162 mL/min (70-130); Calcium 7.6 mg/dL (7.8-10.44); Carbon Dioxide 17 mmol/L (22-29); Chloride 103 mmol/L (98-107); Estimated GFR-MDRD Greater than 90; Glucose 147 mg/dL (70-105); Potassium 3.9 mmol/L (3.5-5.1); Sodium 130 mmol/L (136-145)
[2018-10-24] MEDS: Piperacillin/Tazobactam 3.375 GM in Sodium Chloride 0.9% 100 ML IVPB SCH ×4 (06:17→23:51)
[2018-10-24 06:59] LABS: Hemoglobin 13.3 g/dL (14.0-18.0); Mean Corpuscular HGB CONC 33.3 g/dL (32.0-36.0); Mean Corpuscular Hemoglobin 29.2 pg (27.0-31.0); Mean Corpuscular Volume 87.7 fL (78.0-98.0); Mean Platelet Volume 6.4 fL (7.4-10.4); Platelet Count 214 thou/uL (130-400); RBC Distribution Width 13.5 % (11.5-14.5); Red Blood Cell (RBC) Count 4.54 mill/uL (4.70-6.10); White Blood Cell (WBC) Count 6.4 thou/uL (4.8-10.8)
[2018-10-24 09:21] LABS: Band 8 % (5-11); Lymphocytes 13 % (21-51); MDiff Complete? YES; Monocytes 5 % (0-10); Neutrophil 73 % (42-75); RBC Morphology Normal; Reactive Lymphocytes 1 % (0-10)
[2018-10-24] MEDS: Aspirin Chewable 81 MG TAB PO SCH (09:47)
[2018-10-24] MEDS: TICAGRELOR 90 MG TABLET PO SCH ×2 (09:47→20:25)
[2018-10-24] MEDS: Lisinopril 5 MG TAB PO SCH (09:47)
[2018-10-24] MEDS: Carvedilol 3.125 MG TAB PO SCH ×2 (09:48→17:54)
[2018-10-24 12:25] LABS: Vancomycin, Trough 4.4 ug/mL
[2018-10-24] MEDS ORDERED: cefTRIAXone\\ROCEPHIN 2 GM in Sodium Chloride 0.9% 100 ML IVPB SCH (18:30)
--- NOTE | 2018-10-24 18:47 | PDOC.PN ---
- Subjective Encounter Start Date: 10/24/18 Encounter Start Time: 17:50 Subjective: f/u for E. coli bacteremia after recent prostate bx. Receiving -: Zosyn/Vanc currently with intermittent fever spikes. - Objective Resuscitation Status - Order Detail: 10/23/18 08:37 Resuscitation Status Routine Co-Sign Provider: Resuscitation Status: FULL: Full Resuscitation MAR Reviewed: Yes Vital Signs & Weight: Vital Signs (12 hours) Temp Pulse Resp BP BP Pulse Ox 10/24/18 18:13 99.6 F 74 16 142/63 H 97 10/24/18 15:15 99.0 F 10/24/18 13:45 100.4 F H 10/24/18 12:02 102.1 F H 76 16 125/65 98 10/24/18 09:47 80 122/59 L 10/24/18 07:56 98.4 F 80 16 122/59 L 98 Weight Weight 257 lb 12.8 oz I&O: 10/23/18 10/24/18 10/25/18 06:59 06:59 06:59 Intake Total 1720 1220 Output Total 300 Balance 1720 920 Result Diagrams: 10/24/18 06:42 10/24/18 04:39 Additional Labs: Microbiology 10/22/18 23:55 Urine clean catch Urine Culture - Final NO GROWTH AT 36 HOURS 10/22/18 23:16 Venous blood - Right Hand Blood Culture - Preliminary Escherichia coli 10/22/18 23:16 Venous blood - Left Hand Blood Culture - Preliminary Specimen has been received and culture in progress. No Growth to date. Laboratory Tests 10/22/18 10/22/18 10/23/18 23:16 23:16 04:13 WBC 11.3 H Neutrophils % (Manual) Sodium 135 L 134 L Vancomycin Trough 10/23/18 10/24/18 10/24/18 04:13 06:42 11:58 WBC 4.8 Neutrophils % (Manual) 38 L 73 Sodium Vancomycin Trough 4.4 EKG Reviewed by me: Yes (Tele - SR) Phys Exam - Physical Examination Constitutional: NAD HEENT: PERRLA, sclera anicteric, oral pharynx no lesions Neck: no nodes, no JVD, supple, full ROM Respiratory: no wheezing, no rales, no rhonchi, clear to auscultation bilateral S1, S2 Cardiovascular: RRR, no significant murmur, no rub, gallop obese Gastrointestinal: soft, non-tender, no distention, positive bowel sounds Musculoskeletal: no edema, pulses present Neurological: normal sensation, moves all 4 limbs Psychiatric: A&O x 3 Skin: normal turgor, cap refill <2 seconds Dx/Plan (1) E coli bacteremia Code(s): R78.81 - BACTEREMIA Status: Acute Comment: Secondary to recent prostate bx, continue Zosyn, add Rocephin pending final sensitivities (2) Prostatitis Code(s): N41.9 - INFLAMMATORY DISEASE OF PROSTATE, UNSPECIFIED Status: Acute Qualifiers: Prostatitis type: acute Qualified Code(s): N41.0 - Acute prostatitis Comment: s/p prostate bx, see above (3) Hyponatremia Code(s): E87.1 - HYPO-OSMOLALITY AND HYPONATREMIA Status: Acute Comment: Suspect due to hyperglycemia, resume Metformin, ISS (4) Diabetes type 2, controlled Code(s): E11.9 - TYPE 2 DIABETES MELLITUS WITHOUT COMPLICATIONS Status: Chronic Comment: Resume Metformin, ISS, ADA - Plan continue antibiotics, out of bed/ambulate, DVT proph w/SCDs Stable currently -: Continue Rocephin/Zosyn -: D/C Vancomycin -: Resume home BP regimen -: Convert to inpt status * AM lab: BMP
[2018-10-24] MEDS: Atorvastatin Calcium 40 MG TAB PO SCH (20:25)
[2018-10-24] MEDS: Ibuprofen 200 MG TAB PO PRN (20:25)
[2018-10-25 00:12] LABS: Vancomycin, Trough 8.7 ug/mL
[2018-10-25 05:32] LABS: Anion Gap 11 mmol/L (10-20); BUN (Urea Nitrogen) 7 mg/dL (8.9-20.6); Calc. Creatinine Clearance 172 mL/min (70-130); Carbon Dioxide 21 mmol/L (22-29); Chloride 103 mmol/L (98-107); Estimated GFR-MDRD Greater than 90; Glucose 122 mg/dL (70-105); Potassium 3.3 mmol/L (3.5-5.1); Sodium 132 mmol/L (136-145)
[2018-10-25] MEDS: Piperacillin/Tazobactam 3.375 GM in Sodium Chloride 0.9% 100 ML IVPB SCH (06:00)
[2018-10-25] MEDS ORDERED: metFORMIN 500 MG TAB PO SCH (08:00)
[2018-10-25 08:14] VITALS: BP 143/68; TEMP 98.2
[2018-10-25] MEDS: TICAGRELOR 90 MG TABLET PO SCH (08:35)
[2018-10-25] MEDS: Lisinopril 5 MG TAB PO SCH (08:35)
[2018-10-25] MEDS: Aspirin Chewable 81 MG TAB PO SCH (08:35)
[2018-10-25] MEDS: Carvedilol 3.125 MG TAB PO SCH (08:35)
--- NOTE | 2018-10-25 09:43 | DIS ---
DATE OF ADMISSION: 10/23/2018 DATE OF DISCHARGE: 10/25/2018 DISCHARGE DIAGNOSES: 1. Prostatitis. 2. Escherichia coli bacteremia. 3. Hyponatremia. 4. Diabetes mellitus. 5. History of coronary artery disease. HISTORY OF PRESENT ILLNESS: The patient is a 48-year-old male, who had recently undergone a prostate biopsy, subsequently developed fevers and chills and presented to the emergency department, at presentation had a white count of 11.3. Urinalysis that showed greater than 50 red cells, 11 to 20 white cells. HOSPITAL COURSE: The patient was admitted to the hospital and started on broad-spectrum antibiotics. His lactic acid level of note was normal. He had very mild hyponatremia ranging from 130 to 135 throughout his stay. His blood cultures did ultimately turned positive growing E coli. He remained on broad-spectrum vancomycin and Zosyn until sensitivities were known. The blood culture growing E coli was consistent with this being a post prostate biopsy bacteremia. The E coli proved to be sensitive to all antibiotics tested. The patient was feeling well. He was afebrile and felt stable for discharge to home. PHYSICAL EXAMINATION: VITAL SIGNS: On the day of discharge, temperature is 98.2, pulse 67, respirations 16, O2 saturation 97%, and blood pressure was 143/68. GENERAL APPEARANCE: Age-appropriate male, in no distress. He is awake, alert, oriented, pleasant, cooperative. HEART: Regular rate and rhythm without murmurs, gallops, or rubs. LUNGS: Clear bilaterally. ABDOMEN: Soft, nontender, and nondistended. EXTREMITIES: No edema. DISPOSITION: The patient will be discharged to home. FOLLOWUP: He is to follow up with Genia Carrion next week. DIET: He will be on a regular diet. ACTIVITY: His activity level is as tolerated. He can return to work on Sunday as long as he continues to feel well. DISCHARGE MEDICATIONS: He will be on his usual home medications of; 1. Metformin 500 mg p.o. b.i.d. 2. Brilinta 90 mg p.o. b.i.d. 3. Zestril 5 mg daily. 4. Carvedilol 3.125 mg p.o. b.i.d. 5. Atorvastatin 40 mg at bedtime. 6. Aspirin 81 mg daily. Additionally, he will have Levaquin 500 mg p.o. daily for 4 weeks. The patient is to return to the hospital should he have any problems prior to his followup visit. Job ID: [id number]
--- NOTE | 2018-10-25 09:45 | EKG ---
Test Reason : Blood Pressure : / mmHG Vent. Rate : 097 BPM Atrial Rate : 097 BPM P-R Int : 172 ms QRS Dur : 090 ms QT Int : 340 ms P-R-T Axes : 053 005 032 degrees QTc Int : 431 ms Normal sinus rhythm Normal ECG Confirmed by JUAQUIN CASTREJON DO ([id number]), state editor TYLER HINTON ([id number]) on 10/25/2018 9:45:26 AM Referred By: Confirmed By:JUAQUIN CASTREJON DO
== END 2018-10-25 10:15 | disposition home or self-care (01) ==
LOC: ERS 23:03 → ERHOLD 10-23 01:01 → 2SW 10-23 14:15
PROVIDERS: ADMIT Hospitalist; ATTEND Hospitalist
DX: N41.9 Inflammatory disease of prostate, unspecified (principal); B96.20 Unspecified Escherichia coli [E. coli] as the cause of diseases classified elsewhere; E87.1 Hypo-osmolality and hyponatremia; R50.9 Fever, unspecified; I10 Essential (primary) hypertension; E11.9 Type 2 diabetes mellitus without complications; E78.5 Hyperlipidemia, unspecified; I25.10 Atherosclerotic heart disease of native coronary artery without angina pectoris; Z79.82 Long term (current) use of aspirin; Z79.84 Long term (current) use of oral hypoglycemic drugs; Z79.899 Other long term (current) drug therapy; Z95.5 Presence of coronary angioplasty implant and graft
CPT/HCPCS: 36415; 71045; 80048; 80053; 80202; 81003; 81015; 83605; 85025; 87040; 87077; 87086; 87149; 87186; 93005; 96361; 96365; 96366; 96367; 96375; 96376; G0378; J0696; J2405; J2543; J3370; J3490; J7050

== ENCOUNTER 2019-03-14 09:07 | Emergency (ER) | payer BC ==
[2019-03-14] MEDS ORDERED: Morphine 4 MG/ML VIAL ONE (09:36)
[2019-03-14 10:15] LABS: Band 6 % (5-11); Hemoglobin 15.4 g/dL (14.0-18.0); Lymphocytes 17 % (21-51); MDiff Complete? YES; Mean Corpuscular HGB CONC 34.1 g/dL (32.0-36.0); Mean Corpuscular Hemoglobin 29.5 pg (27.0-31.0); Mean Corpuscular Volume 86.5 fL (78.0-98.0); Mean Platelet Volume 6.8 fL (7.4-10.4); Monocytes 9 % (0-10); Neutrophil 67 % (42-75); Platelet Count 321 thou/uL (130-400); RBC Distribution Width 12.9 % (11.5-14.5); RBC Morphology Normal; Reactive Lymphocytes 1 % (0-10); White Blood Cell (WBC) Count 18.2 thou/uL (4.8-10.8)
[2019-03-14 10:18] LABS: ALT (SGPT) 16 U/L (8-55); AST (SGOT) 11 U/L (5-34); Albumin 4.2 g/dL (3.5-5.0); Alkaline Phosphatase 137 U/L (40-110); Anion Gap 11 mmol/L (10-20); BUN (Urea Nitrogen) 9 mg/dL (8.4-25.7); Bilirubin, Total 0.7 mg/dL (0.2-1.2); Calc. Creatinine Clearance 0 mL/min (70-130); Calcium 9.3 mg/dL (7.8-10.44); Carbon Dioxide 26 mmol/L (22-29); Chloride 100 mmol/L (98-107); Estimated GFR-MDRD Greater than 90; Globulin 3.1 g/dL (2.4-3.5); Glucose 182 mg/dL (70-105); Protein, Total 7.3 g/dL (6.0-8.3); Sodium 133 mmol/L (136-145)
--- NOTE | 2019-03-14 10:20 | ULT ---
SCROTAL ULTRASOUND INDICATION: Left testicular pain TECHNIQUE: Grayscale, color Doppler spectral Doppler images were obtained of the scrotum. COMPARISON: None. FINDINGS: Right Testicle: Size: 3.2 x 4.4 x 2.2 cm. Flow: There is normal vascular flow to the right testicle Hydrocele: There is a small right hydrocele. Epididymis: The right epididymis appears within normal limits. Left Testicle: Size: 2.9 x 4.2 x 3.0 cm. Flow: There is normal vascular flow to left testicle. Hydrocele: There is a moderate left complex hydrocele. Epididymis: The left epididymis is enlarged and demonstrates hypervascularity. Additional findings: None. Impression: 1. Left epididymitis with moderate left complex hydrocele.
[2019-03-14 11:05] LABS: Bacteria/HPF None Seen HPF (None Seen); Bilirubin Negative (Negative); Blood, Urine 1+ (Negative); Clarity Turbid (Clear); Glucose, Urine (Dipstick) 150 mg/dL (Negative); Leukocyte 500 Leu/uL (Negative); Nitrite Negative (Negative); Protein, Urine (Dipstick) 50 mg/dL (Neg-Trace); Squamous Epithelial 0-3 HPF (0-3); WBC/HPF Greater than 50 HPF (0-3)
[2019-03-14] MEDS ORDERED: Sodium Chloride 0.9% 100 ML ONE (11:19)
[2019-03-14] MEDS ORDERED: cefTRIAXone\\ROCEPHIN 1 GM VIAL ONE ×2 (11:19→11:28)
[2019-03-16 14:48] LABS: Chlam.trachomatis by PCR,Urine Not Detected (NotDetected)
== END 2019-03-14 11:56 | disposition home or self-care (01) ==
LOC: ERS 09:07
DX: N45.1 Epididymitis (principal); N39.0 Urinary tract infection, site not specified; I10 Essential (primary) hypertension; I25.2 Old myocardial infarction; E11.9 Type 2 diabetes mellitus without complications; F17.210 Nicotine dependence, cigarettes, uncomplicated; Z79.82 Long term (current) use of aspirin; Z79.84 Long term (current) use of oral hypoglycemic drugs; Z79.899 Other long term (current) drug therapy
CPT/HCPCS: 76870; 80053; 81003; 81015; 85025; 87086; 87491; 87591; 93976; 96365; 96375; J0696; J2270; J3490

== ENCOUNTER 2020-10-18 22:03 | Emergency (ER) | payer BC ==
[2020-10-18] MEDS ORDERED: HYDROcodone/Acetaminophen 5/325 mg Tablet ONE (23:37)
== END 2020-10-18 23:41 | disposition home or self-care (01) ==
LOC: ERS 22:03
DX: S39.012A Strain of muscle, fascia and tendon of lower back, initial encounter (principal); I25.10 Atherosclerotic heart disease of native coronary artery without angina pectoris; E11.9 Type 2 diabetes mellitus without complications; I10 Essential (primary) hypertension; I25.2 Old myocardial infarction; X50.0XXA Overexertion from strenuous movement or load, initial encounter
CPT/HCPCS: 99283

== ENCOUNTER 2020-10-26 08:31 | Emergency (ER) | payer BC ==
[2020-10-26] MEDS ORDERED: HYDROcodone/Acetaminophen 5/325 mg Tablet ONE (09:28)
[2020-10-26 09:44] LABS: Bilirubin Negative (Negative); Blood, Urine Negative (Negative); Clarity Clear (Clear); Glucose, Urine (Dipstick) >=1000 mg/dL (Negative); Ketone, Urine Negative (Negative); Leukocyte 25 Leu/uL (Negative); Nitrite Negative (Negative); Protein, Urine (Dipstick) 20 mg/dL (Neg-Trace); Specific Gravity, Urine 1.025 (1.002-1.036)
[2020-10-26 09:49] LABS: Bacteria/HPF Rare-Few HPF (None Seen); RBC/HPF None Seen HPF (0-3); Squamous Epithelial 0-3 HPF (0-3)
== END 2020-10-26 10:35 | disposition home or self-care (01) ==
LOC: ERS 08:31
DX: N39.0 Urinary tract infection, site not specified (principal); M54.5 Low back pain; I25.2 Old myocardial infarction; E11.9 Type 2 diabetes mellitus without complications; I10 Essential (primary) hypertension; Z79.84 Long term (current) use of oral hypoglycemic drugs; Z79.82 Long term (current) use of aspirin; Z79.02 Long term (current) use of antithrombotics/antiplatelets; Z79.899 Other long term (current) drug therapy; X50.0XXD Overexertion from strenuous movement or load, subsequent encounter
CPT/HCPCS: 81003; 81015; 87086; 99283

== ENCOUNTER 2020-12-13 17:08 | Observation (INO) | payer BC ==
[2020-12-13 18:10] LABS: #Eosinphils 0.2 thou/uL (0.0-0.7); %Basophils 0.3 % (0.0-1.0); %Eosinophils 2.3 % (0.0-10.0); %Lymphocytes 27.9 % (21.0-51.0); %Monocytes 13.7 % (0.0-10.0); %Neutrophils 55.8 % (42.0-75.0); Hemoglobin 15.5 g/dL (14.0-18.0); Mean Corpuscular HGB CONC 34.8 g/dL (32.0-36.0); Mean Corpuscular Hemoglobin 30.6 pg (27.0-31.0); Mean Corpuscular Volume 87.7 fL (78.0-98.0); Mean Platelet Volume 6.6 fL (7.4-10.4); Platelet Count 309 thou/uL (130-400); RBC Distribution Width 13.4 % (11.5-14.5); Red Blood Cell (RBC) Count 5.08 mill/uL (4.70-6.10); White Blood Cell (WBC) Count 7.2 thou/uL (4.8-10.8)
[2020-12-13 18:30] LABS: ALT (SGPT) 32 U/L (8-55); AST (SGOT) 28 U/L (5-34); Albumin 3.8 g/dL (3.5-5.0); Alkaline Phosphatase 136 U/L (40-110); Anion Gap 12 mmol/L (10-20); BUN (Urea Nitrogen) 8 mg/dL (8.4-25.7); Bilirubin, Total 0.6 mg/dL (0.2-1.2); Calc. Creatinine Clearance 0 mL/min (70-130); Carbon Dioxide 22 mmol/L (22-29); Chloride 102 mmol/L (98-107); Globulin 2.9 g/dL (2.4-3.5); Glucose 109 mg/dL (70-105); Potassium 3.3 mmol/L (3.5-5.1); Protein, Total 6.7 g/dL (6.0-8.3); Sodium 133 mmol/L (136-145)
[2020-12-13] MEDS ORDERED: Acetaminophen 500 MG TAB ONE (19:25)
[2020-12-13] MEDS ORDERED: Ondansetron PF 4 MG/2 ML Vial ONE (19:25)
[2020-12-13] MEDS ORDERED: Aspirin Chewable 81 MG TAB ONE (19:44)
[2020-12-13 21:49] LABS: Troponin I Less than 0.010 ng/mL (< 0.028)
[2020-12-13] MEDS ORDERED: Acetaminophen 325 MG TAB PO PRN (23:00)
[2020-12-13] MEDS ORDERED: Ondansetron PF 4 MG/2 ML Vial IVP PRN (23:00)
[2020-12-13] MEDS ORDERED: Ondansetron ODT 4 MG TAB SL PRN (23:00)
[2020-12-13 23:34] VITALS: BMI 41.2
[2020-12-14 00:39] LABS: SARS-CoV-2 NAA Rapid Test DETECTED (NotDetected)
[2020-12-14 01:21] LABS: Troponin I Less than 0.010 ng/mL (< 0.028)
[2020-12-14] MEDS ORDERED: Electrolyte Replacement Protocol 1 EACH FS PRN (06:15)
[2020-12-14] MEDS ORDERED: Potassium Chloride 20 MEQ TAB PO SCH (06:15)
[2020-12-14 06:58] LABS: Hemoglobin 14.7 g/dL (14.0-18.0); Mean Corpuscular HGB CONC 33.7 g/dL (32.0-36.0); Mean Corpuscular Hemoglobin 29.8 pg (27.0-31.0); Mean Corpuscular Volume 88.3 fL (78.0-98.0); Mean Platelet Volume 6.4 fL (7.4-10.4); Platelet Count 298 thou/uL (130-400); RBC Distribution Width 13.2 % (11.5-14.5); Red Blood Cell (RBC) Count 4.93 mill/uL (4.70-6.10); White Blood Cell (WBC) Count 6.7 thou/uL (4.8-10.8)
[2020-12-14 07:04] LABS: Anion Gap 11 mmol/L (10-20); BUN (Urea Nitrogen) 9 mg/dL (8.4-25.7); Calc. Creatinine Clearance 164 mL/min (70-130); Calcium 9.1 mg/dL (7.8-10.44); Carbon Dioxide 26 mmol/L (22-29); Chloride 103 mmol/L (98-107); Glucose 115 mg/dL (70-105); Magnesium 1.8 mg/dL (1.6-2.6); Potassium 3.5 mmol/L (3.5-5.1); Sodium 136 mmol/L (136-145)
[2020-12-14 07:13] VITALS: TEMP 98.2
[2020-12-14 07:59] LABS: Band 5 % (5-11); Lymphocytes 27 % (21-51); MDiff Complete? YES; Monocytes 15 % (0-10); Neutrophil 53 % (42-75); RBC Morphology Normal
[2020-12-14] MEDS ORDERED: Electrolyte Replacement Protocol FS PRN (08:15)
[2020-12-14] MEDS ORDERED: Magnesium 2 GM/50 ML 2 GM in Premix Bag 1 BAG IVPB SCH (09:00)
[2020-12-14 11:22] VITALS: BP 139/76
== END 2020-12-14 16:47 | disposition home or self-care (01) ==
LOC: ERS 17:08 → 2SE 20:57 → 2SW 12-14 06:39
PROVIDERS: ADMIT Student in an Organized Health Care Education/Training Program; ATTEND Student in an Organized Health Care Education/Training Program
DX: U07.1 COVID-19 (principal); R07.9 Chest pain, unspecified; E11.9 Type 2 diabetes mellitus without complications; I10 Essential (primary) hypertension; I25.2 Old myocardial infarction; I25.10 Atherosclerotic heart disease of native coronary artery without angina pectoris; E78.5 Hyperlipidemia, unspecified; F17.210 Nicotine dependence, cigarettes, uncomplicated; Z79.02 Long term (current) use of antithrombotics/antiplatelets; Z79.82 Long term (current) use of aspirin; Z79.84 Long term (current) use of oral hypoglycemic drugs; Z79.899 Other long term (current) drug therapy; Z95.5 Presence of coronary angioplasty implant and graft
CPT/HCPCS: 36415; 71045; 80048; 80053; 83735; 84484; 85025; 93005; 96365; 96366; 96374; 96375; G0378; J2405; J3475; U0002; U0005

== ENCOUNTER 2020-12-20 17:45 | Emergency (ER) | payer BC ==
[2020-12-20 19:06] LABS: Bilirubin Negative (Negative); Blood, Urine Negative (Negative); Clarity Clear (Clear); Glucose, Urine (Dipstick) Normal (Negative); Ketone, Urine Negative (Negative); Leukocyte Negative Leu/uL (Negative); Nitrite Negative (Negative); Protein, Urine (Dipstick) 20 mg/dL (Neg-Trace); Specific Gravity, Urine 1.013 (1.002-1.036); Urobilinogen Normal mg/dL (Less than 2); pH, Urine 7.5 (5.0-9.0)
[2020-12-20 19:22] LABS: #Lymphocytes 2.6 thou/uL (1.20-3.40); #Monocytes 0.7 thou/uL (0.11-0.59); #Neutrophils 4.3 thou/uL (1.40-6.50); %Basophils 0.1 % (0.0-1.0); %Eosinophils 0.2 % (0.0-10.0); %Monocytes 8.7 % (0.0-10.0); %Neutrophils 56.9 % (42.0-75.0); Hemoglobin 15.6 g/dL (14.0-18.0); Mean Corpuscular HGB CONC 34.2 g/dL (32.0-36.0); Mean Corpuscular Hemoglobin 29.6 pg (27.0-31.0); Mean Corpuscular Volume 86.5 fL (78.0-98.0); Mean Platelet Volume 7.4 fL (7.4-10.4); Platelet Count 217 thou/uL (130-400); RBC Distribution Width 12.9 % (11.5-14.5); Red Blood Cell (RBC) Count 5.27 mill/uL (4.70-6.10); White Blood Cell (WBC) Count 7.6 thou/uL (4.8-10.8)
[2020-12-20 19:46] LABS: ALT (SGPT) 50 U/L (8-55); AST (SGOT) 33 U/L (5-34); Albumin 3.4 g/dL (3.5-5.0); Alkaline Phosphatase 123 U/L (40-110); Anion Gap 13 mmol/L (10-20); BUN (Urea Nitrogen) 9 mg/dL (8.4-25.7); Bilirubin, Total 0.8 mg/dL (0.2-1.2); Calc. Creatinine Clearance 0 mL/min (70-130); Calcium 8.3 mg/dL (7.8-10.44); Carbon Dioxide 22 mmol/L (22-29); Chloride 101 mmol/L (98-107); Glucose 89 mg/dL (70-105); Lipase 30 U/L (8-78); Potassium 3.6 mmol/L (3.5-5.1); Protein, Total 6.4 g/dL (6.0-8.3); Sodium 132 mmol/L (136-145)
[2020-12-20] MEDS ORDERED: Ondansetron ODT 4 MG TAB ONE (19:49)
== END 2020-12-20 20:03 | disposition home or self-care (01) ==
LOC: ERS 17:45
DX: U07.1 COVID-19 (principal); Z79.899 Other long term (current) drug therapy; Z79.82 Long term (current) use of aspirin; Z79.84 Long term (current) use of oral hypoglycemic drugs; E78.5 Hyperlipidemia, unspecified; I25.2 Old myocardial infarction; E11.9 Type 2 diabetes mellitus without complications; I10 Essential (primary) hypertension; Z87.891 Personal history of nicotine dependence
CPT/HCPCS: 36415; 80053; 81003; 83690; 85025; 99284; Q0162

== ENCOUNTER 2022-03-27 02:11 | Observation (INO) | payer BC ==
[2022-03-27 02:57] LABS: #Basophils 0.1 thou/uL (0.0-0.2); #Eosinphils 0.3 thou/uL (0.0-0.7); #Lymphocytes 5.1 thou/uL (1.20-3.40); #Monocytes 1.2 thou/uL (0.11-0.59); #Neutrophils 6.3 thou/uL (1.40-6.50); %Basophils 0.9 % (0.0-1.0); %Eosinophils 2.1 % (0.0-10.0); %Lymphocytes 39.4 % (21.0-51.0); %Monocytes 9.1 % (0.0-10.0); %Neutrophils 48.4 % (42.0-75.0); Hemoglobin 15.1 g/dL (14.0-18.0); Mean Corpuscular HGB CONC 32.4 g/dL (32.0-36.0); Mean Corpuscular Hemoglobin 29.4 pg (27.0-31.0); Mean Corpuscular Volume 90.6 fl (78.0-98.0); Mean Platelet Volume 6.8 fL (7.4-10.4); Platelet Count 318 10x3/uL (130-400); RBC Distribution Width 13.7 % (11.5-14.5); Red Blood Cell (RBC) Count 5.13 mill/uL (4.70-6.10)
[2022-03-27 03:16] LABS: ALT (SGPT) 29 U/L (8-55); AST (SGOT) 18 U/L (5-34); Albumin 3.7 g/dL (3.5-5.0); Alkaline Phosphatase 123 U/L (40-110); Anion Gap 10 mmol/L (10-20); BUN (Urea Nitrogen) 11 mg/dL (8.4-25.7); Bilirubin, Total 0.3 mg/dL (0.2-1.2); Calc. Creatinine Clearance 0 mL/min (70-130); Calcium 8.7 mg/dL (7.8-10.44); Carbon Dioxide 23 mmol/L (22-29); Chloride 105 mmol/L (98-107); Estimated GFR 103; Globulin 2.5 g/dL (2.4-3.5); Glucose 238 mg/dL (70-105); Protein, Total 6.2 g/dL (6.0-8.3); Sodium 134 mmol/L (136-145)
[2022-03-27] MEDS ORDERED: Senokot S 8.6-50 MG TAB PO PRN (04:28)
[2022-03-27] MEDS ORDERED: Ondansetron ODT 4 MG TAB PO PRN (04:28)
[2022-03-27] MEDS ORDERED: Guaifenesin DM 100-10/5 ML UDCUP PO PRN (04:28)
[2022-03-27] MEDS ORDERED: Calcium Carbonate 500 MG ChewTAB PO PRN (04:28)
[2022-03-27] MEDS ORDERED: Bisacodyl 5 MG TAB PO PRN (04:28)
[2022-03-27] MEDS ORDERED: Ondansetron PF 4 MG/2 ML Vial IVP PRN (04:28)
[2022-03-27] MEDS ORDERED: Acetaminophen 325 MG TAB PO PRN (04:28)
[2022-03-27] MEDS ORDERED: Acetaminophen 650 MG Suppository PR PRN (04:28)
[2022-03-27] MEDS ORDERED: Bisacodyl 10 MG SUPP PR PRN (04:28)
[2022-03-27] MEDS ORDERED: Nitroglycerin 0.4 MG TAB (25 Tab Bottle) SL SCH (04:45)
[2022-03-27 04:59] VITALS: BMI 37.5
[2022-03-27 05:23] LABS: Hemoglobin A1c 6.8 % (4.0-6.0)
[2022-03-27] MEDS: Sodium Chloride 0.9% 1,000 ML IV SCH (05:23)
[2022-03-27 05:29] LABS: Cardiac Risk 3.4 (Less than 4.5)
[2022-03-27 05:42] LABS: Troponin I Less than 0.010 ng/mL (< 0.028)
[2022-03-27 05:52] LABS: INR-International Normal Ratio 0.9; Prothrombin Time 12.6 sec (12.0-14.7)
[2022-03-27 05:53] LABS: PTT 28.2 sec (22.9-36.1)
[2022-03-27] MEDS ORDERED: Lisinopril 5 MG TAB PO SCH (09:00)
[2022-03-27] MEDS ORDERED: Aspirin Chewable 81 MG TAB PO SCH (09:00)
[2022-03-27] MEDS ORDERED: Aspirin Chewable 81 MG TAB ONE (09:18)
[2022-03-27] MEDS: Carvedilol 3.125 MG TAB PO SCH ×2 (09:20→17:26)
[2022-03-27] MEDS: Heparin 5,000 UNITS/ML VIAL SC SCH ×2 (09:20→16:20)
[2022-03-27] MEDS: TICAGRELOR 90 MG TABLET PO SCH ×2 (09:21→21:25)
[2022-03-27 09:49] LABS: Troponin I Less than 0.010 ng/mL (< 0.028)
[2022-03-27 12:21] LABS: Hemoglobin 15.4 g/dL (14.0-18.0); Mean Corpuscular HGB CONC 32.6 g/dL (32.0-36.0); Mean Corpuscular Hemoglobin 29.6 pg (27.0-31.0); Mean Platelet Volume 6.6 fL (7.4-10.4); Platelet Count 315 10x3/uL (130-400); RBC Distribution Width 13.8 % (11.5-14.5); Red Blood Cell (RBC) Count 5.18 mill/uL (4.70-6.10); White Blood Cell (WBC) Count 10.3 10x3/uL (4.8-10.8)
[2022-03-27] MEDS ORDERED: Communication Order-Pharmacy FS SCH (15:15)
[2022-03-27 18:54] LABS: SARS-CoV-2 NAA Rapid Test Not Detected (NotDetected)
[2022-03-27] MEDS ORDERED: Atorvastatin Calcium 40 MG TAB PO SCH (21:00)
[2022-03-28 02:07] LABS: Bacteria/HPF 1+ HPF (None Seen); Bilirubin Negative (Negative); Blood, Urine Negative (Negative); CAUTI Indications for Culture Dysuria,urgency,freq; Clarity Clear (Clear); Glucose, Urine (Dipstick) 70 mg/dL (Negative); Ketone, Urine Negative (Negative); Leukocyte 25 Leu/uL (Negative); Nitrite Negative (Negative); Protein, Urine (Dipstick) Negative (Neg-Trace); RBC/HPF 0-3 HPF (0-3); Squamous Epithelial 0-3 HPF (0-3); Urobilinogen Normal mg/dL (Less than 2); pH, Urine 6.5 (5.0-9.0)
[2022-03-28 02:09] LABS: Urine Culture Reflex No No
[2022-03-28 05:45] LABS: #Eosinphils 0.2 thou/uL (0.0-0.7); #Lymphocytes 4.4 thou/uL (1.20-3.40); #Monocytes 0.8 thou/uL (0.11-0.59); #Neutrophils 4.3 thou/uL (1.40-6.50); %Basophils 0.5 % (0.0-1.0); %Eosinophils 2.4 % (0.0-10.0); %Lymphocytes 44.7 % (21.0-51.0); %Monocytes 8.3 % (0.0-10.0); %Neutrophils 44.2 % (42.0-75.0); Hemoglobin 14.6 g/dL (14.0-18.0); Mean Corpuscular HGB CONC 32.9 g/dL (32.0-36.0); Mean Corpuscular Volume 91.3 fl (78.0-98.0); Mean Platelet Volume 6.7 fL (7.4-10.4); Platelet Count 290 10x3/uL (130-400); RBC Distribution Width 13.8 % (11.5-14.5); Red Blood Cell (RBC) Count 4.87 mill/uL (4.70-6.10); White Blood Cell (WBC) Count 9.8 10x3/uL (4.8-10.8)
[2022-03-28] MEDS ORDERED: Sodium Chloride 0.9% 1,000 ML IV SCH (06:00)
[2022-03-28 06:12] LABS: Anion Gap 10 mmol/L (10-20); BUN (Urea Nitrogen) 10 mg/dL (8.4-25.7); Calc. Creatinine Clearance 167 mL/min (70-130); Calcium 8.3 mg/dL (7.8-10.44); Carbon Dioxide 23 mmol/L (22-29); Chloride 106 mmol/L (98-107); Estimated GFR 105; Glucose 136 mg/dL (70-105); Magnesium 1.7 mg/dL (1.6-2.6); Potassium 3.8 mmol/L (3.5-5.1); Sodium 135 mmol/L (136-145)
[2022-03-28] MEDS: Sodium Chloride 0.9% 1,000 ML IV SCH (07:40)
[2022-03-28] MEDS ORDERED: Iopamidol 370 76% 100 ML VIAL ONE (09:00)
[2022-03-28 09:47] VITALS: BP 134/77; TEMP 97.3
[2022-03-28] MEDS ORDERED: Lidocaine 1% (PF) 30 ML VIAL ONE (11:15)
[2022-03-28] MEDS ORDERED: Midazolam HCl 2 mg/2 ml Vial ONE (11:49)
[2022-03-28] MEDS ORDERED: Nitroglycerin 100MG/250ML BOT 250 ML ONE (11:50)
[2022-03-28] MEDS ORDERED: FENTANYL 50 MCG/ML 1 ML VIAL ONE (11:50)
[2022-03-28] MEDS ORDERED: diphenhydrAMINE 50 MG/ML VIAL ONE (12:35)
[2022-03-28] MEDS ORDERED: Acetaminophen/Codeine 30-300mg Tablet PO PRN (13:23)
[2022-03-28] MEDS ORDERED: Nitroglycerin 0.4 MG TAB (25 Tab Bottle) SL PRN (13:23)
[2022-03-28] MEDS ORDERED: Sodium Chloride 0.9% 250 ML 200 ML IV PRN (13:25)
[2022-03-30] MEDS ORDERED: FLU VACC QS2022-23(6MOS UP)/PF 60 MCG/0.5 ML SYRINGE IM ONE (09:00)
== END 2022-03-28 17:19 | disposition home or self-care (01) ==
LOC: ERS 02:11 → ERHOLD 04:16 → PACU-TCU 23:33
PROVIDERS: ADMIT Internal Medicine; ATTEND Internal Medicine
PROC: 4A023N7 Measurement of Cardiac Sampling and Pressure, Left Heart, Percutaneous Approach (ICD-10-PCS; principal; 2022-03-28)
PROC: B2111ZZ Fluoroscopy of Multiple Coronary Arteries using Low Osmolar Contrast (ICD-10-PCS; 2022-03-28)
DX: R07.89 Other chest pain (principal); I10 Essential (primary) hypertension; E78.5 Hyperlipidemia, unspecified; I25.10 Atherosclerotic heart disease of native coronary artery without angina pectoris; E11.9 Type 2 diabetes mellitus without complications; D72.829 Elevated white blood cell count, unspecified; I25.2 Old myocardial infarction; Z87.891 Personal history of nicotine dependence; Z79.02 Long term (current) use of antithrombotics/antiplatelets; Z79.82 Long term (current) use of aspirin; Z79.84 Long term (current) use of oral hypoglycemic drugs; Z79.899 Other long term (current) drug therapy; Z95.5 Presence of coronary angioplasty implant and graft; Z20.822 Contact with and (suspected) exposure to COVID-19
CPT/HCPCS: 36415; 36416; 71045; 80048; 80053; 80061; 81001; 83036; 83735; 84484; 85025; 85610; 85730; 93005; 93306; 93458; 94760; 96372; 99152; 99153; C1769; G0378; J1200; J1644; J2001; J2250; J3010; J7050; U0002

== ENCOUNTER 2022-11-09 21:08 | Emergency (ER) | payer OTHER, BC ==
[2022-11-09] MEDS ORDERED: HYDROcodone/Acetaminophen 5/325 mg Tablet ONE (23:16)
== END 2022-11-10 00:26 | disposition home or self-care (01) ==
LOC: ERS 21:08
DX: S52.244A Nondisplaced spiral fracture of shaft of ulna, right arm, initial encounter for closed fracture (principal); E78.5 Hyperlipidemia, unspecified; E11.9 Type 2 diabetes mellitus without complications; I10 Essential (primary) hypertension; F17.210 Nicotine dependence, cigarettes, uncomplicated; W01.0XXA Fall on same level from slipping, tripping and stumbling without subsequent striking against object, initial encounter
CPT/HCPCS: 29105; 29125

== ENCOUNTER 2023-02-06 21:22 | Emergency (ER) | payer BC ==
[2023-02-06] MEDS ORDERED: Proparacaine 0.5% Opth 15 ML BOT ONE (21:43)
[2023-02-06] MEDS ORDERED: Fluorescein Opthalmic Strip ONE (21:43)
== END 2023-02-06 22:33 | disposition home or self-care (01) ==
LOC: ERS 21:22
DX: H10.501 Unspecified blepharoconjunctivitis, right eye (principal); E78.5 Hyperlipidemia, unspecified; E11.9 Type 2 diabetes mellitus without complications; F17.210 Nicotine dependence, cigarettes, uncomplicated; Z79.899 Other long term (current) drug therapy; Z79.82 Long term (current) use of aspirin
CPT/HCPCS: 99283

== ENCOUNTER 2023-02-27 10:03 | Observation (INO) | payer BC ==
[2023-02-27] MEDS ORDERED: Iopamidol-370 76% 500 ML MDV (1 ML CHARGE) ONE (10:39)
[2023-02-27 11:55] LABS: #Basophils 0.1 thou/uL (0.0-0.2); #Eosinphils 0.6 thou/uL (0.0-0.7); #Monocytes 0.7 thou/uL (0.11-0.59); #Neutrophils 4.5 thou/uL (1.40-6.50); %Basophils 0.8 % (0.0-1.0); %Eosinophils 6.9 % (0.0-10.0); %Lymphocytes 33.9 % (21.0-51.0); %Monocytes 8.1 % (0.0-10.0); %Neutrophils 50.2 % (42.0-75.0); Hematocrit 45.1 % (42.0-52.0); Hemoglobin 15.4 g/dL (14.0-18.0); Mean Corpuscular HGB CONC 34.1 g/dL (32.0-36.0); Mean Corpuscular Hemoglobin 29.3 pg (27.0-31.0); Mean Corpuscular Volume 85.7 fl (78.0-98.0); Mean Platelet Volume 8.5 fL (7.4-10.4); Platelet Count 313 10x3/uL (130-400); RBC Distribution Width 14.7 % (11.5-14.5); Red Blood Cell (RBC) Count 5.26 mill/uL (4.70-6.10)
[2023-02-27] MEDS ORDERED: Piperacillin/Tazobactam 4.5 GM VIAL ONE (11:56)
[2023-02-27] MEDS ORDERED: fentaNYL 50 mcg/mL 1 mL Vial ONE (11:56)
[2023-02-27] MEDS ORDERED: Sodium Chloride 0.9% 100 ML ONE (11:58)
[2023-02-27 12:22] LABS: ALT (SGPT) 19 U/L (8-55); AST (SGOT) 15 U/L (5-34); Albumin 4.2 g/dL (3.5-5.0); Alkaline Phosphatase 119 U/L (40-110); Anion Gap 14 mmol/L (10-20); BUN (Urea Nitrogen) 10 mg/dL (8.4-25.7); Bilirubin, Total 0.3 mg/dL (0.2-1.2); Calc. Creatinine Clearance 0 mL/min (70-130); Calcium 8.8 mg/dL (7.8-10.44); Carbon Dioxide 21 mmol/L (22-29); Chloride 106 mmol/L (98-107); Estimated GFR 101; Globulin 2.4 g/dL (2.4-3.5); Glucose 179 mg/dL (70-105); Potassium 3.5 mmol/L (3.5-5.1); Protein, Total 6.6 g/dL (6.0-8.3); Sodium 137 mmol/L (136-145)
[2023-02-27] MEDS ORDERED: Vancomycin 1 GM/200 ML (FROZEN) BAG ONE ×2 (13:01→13:31)
[2023-02-27] MEDS ORDERED: Senokot S 8.6-50 MG TAB PO PRN (14:51)
[2023-02-27] MEDS ORDERED: Acetaminophen 325 MG TAB PO PRN (14:51)
[2023-02-27] MEDS ORDERED: Glucagon 1 MG/ML KIT IM PRN (14:51)
[2023-02-27] MEDS ORDERED: Dextrose 50% Abboject 50 ML SYRINGE SLOW IVP PRN (14:51)
[2023-02-27] MEDS ORDERED: Acetaminophen 650 MG Suppository PR PRN (14:51)
[2023-02-27] MEDS ORDERED: Dextrose 5% in Water 1,000 ML IV PRN (14:51)
[2023-02-27] MEDS ORDERED: Guaifenesin DM 100-10/5 ML UDCUP PO PRN (14:51)
[2023-02-27] MEDS ORDERED: HumaLOG 300 UNITS/3 ML VIAL SC PRN ×2 (14:51)
[2023-02-27] MEDS ORDERED: Ondansetron ODT 4 MG TAB PO PRN (14:51)
[2023-02-27] MEDS ORDERED: Ondansetron PF 4 MG/2 ML Vial IVP PRN (14:51)
[2023-02-27 14:55] VITALS: BMI 36.1
[2023-02-27] MEDS ORDERED: Vancomycin HCl 500 MG in Sodium Chloride 0.9% 100 ML IVPB SCH (15:15)
[2023-02-27] MEDS ORDERED: VANCOMYCIN IVPB PRN (15:15)
[2023-02-27] MEDS: Piperacillin/Tazobactam 3.375 GM in Sodium Chloride 0.9% 100 ML IVPB SCH ×2 (15:25→23:26)
[2023-02-27] MEDS ORDERED: FLU VACC QS2023-24(6MOS UP)/PF 60 MCG/0.5 ML SYRINGE IM ONE (15:30)
[2023-02-27] MEDS ORDERED: Ketorolac Tromethamine 30 MG/ML VIAL IVP PRN (16:29)
[2023-02-27] MEDS ORDERED: HYDROcodone/Acetaminophen 5/325 mg Tablet PO PRN (16:29)
[2023-02-27] MEDS ORDERED: Piperacillin/Tazobactam 3.375 GM in Sodium Chloride 0.9% 100 ML IVPB SCH (18:00)
[2023-02-27] MEDS ORDERED: Atorvastatin Calcium 40 MG TAB PO SCH (21:00)
[2023-02-27] MEDS ORDERED: Vancomycin 1 GM in Premix 1 BAG IVPB SCH (21:00)
[2023-02-28] MEDS: Vancomycin (BATCH) 1.5 GM in Premix 1 BAG IVPB SCH ×2 (03:25→14:22)
[2023-02-28 05:46] LABS: #Basophils 0.1 thou/uL (0.0-0.2); #Eosinphils 0.8 thou/uL (0.0-0.7); #Monocytes 0.8 thou/uL (0.11-0.59); #Neutrophils 3.3 thou/uL (1.40-6.50); %Basophils 0.7 % (0.0-1.0); %Eosinophils 8.7 % (0.0-10.0); %Lymphocytes 43.9 % (21.0-51.0); %Monocytes 9.4 % (0.0-10.0); %Neutrophils 37.2 % (42.0-75.0); Hematocrit 41.7 % (42.0-52.0); Hemoglobin 14.4 g/dL (14.0-18.0); Mean Corpuscular HGB CONC 34.5 g/dL (32.0-36.0); Mean Corpuscular Hemoglobin 30.2 pg (27.0-31.0); Mean Corpuscular Volume 87.4 fl (78.0-98.0); Mean Platelet Volume 9.2 fL (7.4-10.4); Platelet Count 332 10x3/uL (130-400); RBC Distribution Width 14.6 % (11.5-14.5); Red Blood Cell (RBC) Count 4.77 mill/uL (4.70-6.10); White Blood Cell (WBC) Count 8.8 10x3/uL (4.8-10.8)
[2023-02-28 06:06] LABS: Anion Gap 11 mmol/L (10-20); BUN (Urea Nitrogen) 9 mg/dL (8.4-25.7); Calc. Creatinine Clearance 146 mL/min (70-130); Calcium 8.6 mg/dL (7.8-10.44); Carbon Dioxide 23 mmol/L (22-29); Chloride 105 mmol/L (98-107); Estimated GFR 102; Glucose 111 mg/dL (70-105); Potassium 3.7 mmol/L (3.5-5.1); Sodium 135 mmol/L (136-145)
[2023-02-28] MEDS: Piperacillin/Tazobactam 3.375 GM in Sodium Chloride 0.9% 100 ML IVPB SCH (07:36)
[2023-02-28] MEDS ORDERED: Aspirin Chewable 81 MG TAB PO SCH (09:00)
[2023-02-28] MEDS ORDERED: Lisinopril 5 MG TAB PO SCH (13:15)
[2023-02-28 13:52] VITALS: BP 185/100; TEMP 98.7
[2023-02-28] MEDS ORDERED: Carvedilol 3.125 MG TAB PO SCH (17:00)
[2023-03-01] MEDS ORDERED: Lisinopril 5 MG TAB PO SCH (09:00)
== END 2023-02-28 15:07 | disposition home or self-care (01) ==
LOC: ERS 10:03 → T4-A 14:45
PROVIDERS: ADMIT Hospitalist; ATTEND Hospitalist
DX: H00.13 Chalazion right eye, unspecified eyelid (principal); H00.033 Abscess of eyelid right eye, unspecified eyelid; E11.9 Type 2 diabetes mellitus without complications; I10 Essential (primary) hypertension; I25.10 Atherosclerotic heart disease of native coronary artery without angina pectoris; E78.5 Hyperlipidemia, unspecified; I25.2 Old myocardial infarction; F17.210 Nicotine dependence, cigarettes, uncomplicated; Z95.818 Presence of other cardiac implants and grafts
CPT/HCPCS: 36415; 36416; 70481; 80048; 80053; 85025; 86140; 96365; 96366; 96367; 96375; 96376; G0378; J2543; J3010; J3370; J3370-JW; J3490